=== PATIENT | male | born 1980 | race Caucasian/White ===

== ENCOUNTER 2021-02-19 17:17 | Emergency (ER) | payer OTHER ==
[~2021-02-19 17:17] MED LIST: SUBOXONE 8 MG-1 EACH PO; TYLENOL #31 EACH PO
== END 2021-02-19 18:25 | disposition home or self-care (01) ==
LOC: FER 17:17
DX: S11.91XA Laceration without foreign body of unspecified part of neck, initial encounter (principal); F17.210 Nicotine dependence, cigarettes, uncomplicated; Z23 Encounter for immunization; W45.8XXA Other foreign body or object entering through skin, initial encounter; Y92.009 Unspecified place in unspecified non-institutional (private) residence as the place of occurrence of the external cause
CPT/HCPCS: 90471; 90715; 99282